=== PATIENT | male | born 1960 | race Caucasian/White ===

== ENCOUNTER → 2018-10-03 09:19 | Outpatient (CLI) | payer OTHER, SELFPAY ==
--- NOTE | 2018-10-03 10:00 | CT_ITS ---
CT abdomen w con CLINICAL INDICATION: Abdominal pain, Tenderness of the stomach, tightness, pain ITS.REASON: PANCREATIC PROTOCOL ORDERING PHYSICIAN: Mundo Fournier MD PATIENT AGE: 57 years COMPARISON: None TECHNIQUE: Axial images obtained with sagittal and coronal reformats. 30 seconds, 60 seconds, 5 minute, 10 minute post enhanced images are obtained All CT scans at the facility use one or more dose reduction, viz: automated exposure control, ma/kV adjustment per patient size (including targeted exams where dose is matched to indication, i.e. head), or iterative reconstruction technique. PROCEDURE: Oral Contrast: Redicat IV Contrast: 75 mL's Optiray 350. FINDINGS: No acute finding in the lung bases. There are bilateral calcified granulomas. The liver, spleen, adrenal glands, gallbladder, and right kidney have an unremarkable appearance. There is a 7.9 x 7.2 x 7.7 cm left renal cyst along the medial and upper pole of the left kidney. There are few small retroperitoneal lymph nodes. There is an 11 x 11 mm isodensity in the neck of the pancreas. This is just inferior to the pancreatic duct. No calcification evident within the pancreas. Pancreatic head has an unremarkable appearance. There is no peripancreatic adenopathy or stranding of the peripancreatic fat. The pancreatic duct is slightly prominent at 4 mm. No other significant anomalies are evident. IMPRESSION: There is an 11 mm isodense lesion in the region of the neck of the pancreas at the junction of the body and head just posterior and inferior to the main pancreatic duct. There may represent a small cystic pancreatic neoplasm such as a branch duct IPMN or serous cystadenoma. A small mucinous cystadenoma is also consideration but almost exclusively seen in females. A simple pancreatic cyst/pseudocyst is also a consideration. Suggest follow-up MRI in 3 months without and with contrast with MRCP.
[2018-10-03 10:02] LABS: Blood Urea Nitrogen 11 mg/dL (7-18); Creatinine,Serum 0.77 mg/dL (0.70-1.30); Estimated Glomerular Filt Rate 105 ml/min (>60); GFR (African American) 126 ML/MIN (>60)
== END ==
PROVIDERS: PCP Emergency Medicine; Visit Provider Internal Medicine Gastroenterology
DX: K85.90 Acute pancreatitis without necrosis or infection, unspecified (principal)
CPT/HCPCS: 36415; 74160; 82565; 84520; Q9967